=== PATIENT | male | born 1975 | race Two or more races ===

== ENCOUNTER 2019-05-31 22:09 | Inpatient (IN) | payer MEDICAID, OTHER ==
[~2019-05-31] VITALS: Ht 167.6 cm; Wt 77.3 kg
--- NOTE | 2019-05-31 22:24 | NUR ---
THIS IS A 44 YO MALE BIB EMS FROM [place] FOR SOB AND COUGH X2 DAYS, FEVERS AT HOME AND TEMP OF 99.6 AT SENDING FACILITY. PER PAPERWORK FROM [facility], PATIENT WAS DIAGNOSED WITH BILATERAL PNEUMONIA AND GIVEN ROCEPHIN AND AZITHROMYCIN, WELL IBUPROFEN AND TYLENOL AND IVF. LUNG SOUNDS REVEAL CRACKLES IN BILATERAL BASES. PATIENT SPEAKING IN FULL SENTENCES, RESPIRATIONS EVEN AND UNLABORED. 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 PIV PLACED BY SENDING FACILITY.
--- NOTE | 2019-05-31 23:12 | NUR ---
PATIENT RESTING ON GURNEY, VSS, RESPIRATIONS EVEN AND UNLABORED. CALL LIGHT IN REACH
[2019-06-01 00:01] LABS: BASOPHILS # (AUTO) 0.02 x10^3/uL (0-0.1); BASOPHILS % (AUTO) 0 % (0-1); EOSINOPHILS % (AUTO) 0 % (1-7); LYMPHOCYTES # (AUTO) 1.05 x10^3/uL (1-3.4); LYMPHOCYTES % (AUTO) 18 % (22-44); MD NO; MEAN CORPUSCULAR HEMOGLOBIN 29.8 pg (27.5-34.5); MEAN CORPUSCULAR HGB CONC 33.6 g/dL (33.2-36.2); MEAN CORPUSCULAR VOLUME 88.6 fL (81-97); MEAN PLATELET VOLUME 8.3 fL (7.4-10.4); MONOCYTES % (AUTO) 8 % (2-9); NEUTROPHILS # (AUTO) 4.41 x10^3/uL (1.8-6.8); NEUTROPHILS % (AUTO) 74 % (42-75); PLATELET COUNT 200 x10^3/uL (130-400); RED BLOOD COUNT 4.96 x10^6/uL (4.38-5.82); RED CELL DISTRIBUTION WIDTH 13.4 % (9.4-14.8)
--- NOTE | 2019-06-01 00:08 | NUR ---
XRAY IN ROOM
[2019-06-01 00:11] LABS: ALANINE AMINOTRANSFERASE 138 U/L (12-78); ALBUMIN 3.1 g/dL (3.4-5.0); ANION GAP 5 mmol/L (5-15); CALCIUM 8.2 mg/dL (8.5-10.1); CHLORIDE 108 mmol/L (98-107); CREATININE 0.85 mg/dL (0.7-1.3)
[2019-06-01 00:15] LABS: ALKALINE PHOSPHATASE 67 U/L (45-117); BILIRUBIN,TOTAL 0.4 mg/dL (0.2-1.0)
--- NOTE | 2019-06-01 00:20 | NUR ---
REPROT GIVEN TO JV CHO. PLAN OF CARE DISCUSSED
[2019-06-01] MEDS ORDERED: ONDANSETRON 2MG/ML, 2ML IVPush PRN (00:30)
[2019-06-01] MEDS: ENOXAPARIN 40 MG/0.4 ML SQ SCH ×2 (00:30→20:12)
[2019-06-01] MEDS ORDERED: TRAZODONE 50MG TABLET PO PRN (00:30)
[2019-06-01 01:00] VITALS: BP 111/78
[2019-06-01] MEDS: ACETAMINOPHEN 325 MG TABLET PO PRN ×3 (01:10→20:12)
[2019-06-01 01:15] VITALS: BP 111/78
[2019-06-01 07:19] VITALS: BP 110/74
[2019-06-01] MEDS ORDERED: AZITHROMYCIN 500 MG in SODIUM CHLORIDE 0.9% 250 ML IV SCH (09:00)
[2019-06-01 13:03] VITALS: BP 126/80
[2019-06-01] MEDS: HYDROXYCHLOROQUINE 200 MG TABLET PO SCH ×2 (16:50→21:17)
[2019-06-01 20:12] VITALS: BP 111/72
[2019-06-01] MEDS: GUAIFENESIN/COD200MG-20MG/10ML LIQUID PO PRN (20:12)
[2019-06-01] MEDS: CEFTRIAXONE PMX 1GM/50ML 50 ML IV SCH (20:12)
[2019-06-02 01:00] VITALS: BP 122/82
[2019-06-02] MEDS: ACETAMINOPHEN 325 MG TABLET PO PRN ×4 (01:00→16:52)
[2019-06-02] MEDS: GUAIFENESIN/COD200MG-20MG/10ML LIQUID PO PRN ×2 (03:33→10:10)
[2019-06-02 04:04] VITALS: BP 114/79
[2019-06-02] MEDS: HYDROXYCHLOROQUINE 200 MG TABLET PO SCH ×3 (09:00→20:48)
[2019-06-02 09:50] VITALS: BP 117/68
[2019-06-02 14:00] VITALS: BP 130/77
[2019-06-02] MEDS: CEFTRIAXONE PMX 1GM/50ML 50 ML IV SCH (19:25)
[2019-06-02] MEDS: ENOXAPARIN 40 MG/0.4 ML SQ SCH (19:25)
[2019-06-02 19:37] VITALS: BP 112/71
[2019-06-02] MEDS: AZITHROMYCIN 500 MG TABLET PO SCH (20:48)
[2019-06-03 01:43] VITALS: BP 133/77
[2019-06-03] MEDS: HYDROXYCHLOROQUINE 200 MG TABLET PO SCH ×3 (08:28→20:07)
[2019-06-03 08:35] VITALS: BP 115/74
[2019-06-03 14:00] VITALS: BP 116/75
[2019-06-03] MEDS ORDERED: ALBUTEROL INH SCH (15:00)
[2019-06-03] MEDS: ALBUTEROL INH SCH ×2 (16:01→22:00)
[2019-06-03] MEDS: ACETAMINOPHEN 325 MG TABLET PO PRN ×2 (16:07→22:05)
[2019-06-03] MEDS: GUAIFENESIN/COD200MG-20MG/10ML LIQUID PO PRN ×2 (16:07→22:05)
[2019-06-03] MEDS: ENOXAPARIN 40 MG/0.4 ML SQ SCH (20:07)
[2019-06-03] MEDS: AZITHROMYCIN 500 MG TABLET PO SCH (20:07)
[2019-06-03] MEDS: CEFTRIAXONE PMX 1GM/50ML 50 ML IV SCH (20:07)
[2019-06-03 20:30] VITALS: BP 114/77
[2019-06-04 03:45] VITALS: BP 105/72
[2019-06-04] MEDS: ACETAMINOPHEN 325 MG TABLET PO PRN ×2 (03:49→11:49)
[2019-06-04] MEDS: ALBUTEROL INH SCH ×2 (03:50→07:46)
[2019-06-04] MEDS: GUAIFENESIN/COD200MG-20MG/10ML LIQUID PO PRN ×2 (03:50→11:49)
[2019-06-04 06:50] LABS: ALANINE AMINOTRANSFERASE 204 U/L (12-78); ALBUMIN 2.7 g/dL (3.4-5.0); ANION GAP 4 mmol/L (5-15); CALCIUM 8.5 mg/dL (8.5-10.1); CHLORIDE 109 mmol/L (98-107); CREATININE 0.83 mg/dL (0.7-1.3)
[2019-06-04 06:52] LABS: ALKALINE PHOSPHATASE 81 U/L (45-117); BILIRUBIN,TOTAL 0.2 mg/dL (0.2-1.0)
[2019-06-04 06:59] LABS: BASOPHILS # (AUTO) 0.02 x10^3/uL (0-0.1); BASOPHILS % (AUTO) 0 % (0-1); EOSINOPHILS # (AUTO) 0.07 x10^3/uL (0-0.4); EOSINOPHILS % (AUTO) 1 % (1-7); LYMPHOCYTES # (AUTO) 1.02 x10^3/uL (1-3.4); LYMPHOCYTES % (AUTO) 18 % (22-44); MD NO; MEAN CORPUSCULAR HEMOGLOBIN 29.9 pg (27.5-34.5); MEAN CORPUSCULAR HGB CONC 33.9 g/dL (33.2-36.2); MEAN CORPUSCULAR VOLUME 88.1 fL (81-97); MONOCYTES # (AUTO) 0.67 x10^3/uL (0.2-0.8); MONOCYTES % (AUTO) 12 % (2-9); NEUTROPHILS # (AUTO) 3.96 x10^3/uL (1.8-6.8); NEUTROPHILS % (AUTO) 69 % (42-75); PLATELET COUNT 275 x10^3/uL (130-400); RED BLOOD COUNT 4.75 x10^6/uL (4.38-5.82); RED CELL DISTRIBUTION WIDTH 13.1 % (9.4-14.8)
[2019-06-04 07:45] VITALS: BP 113/74
[2019-06-04] MEDS: HYDROXYCHLOROQUINE 200 MG TABLET PO SCH (07:46)
[2019-06-04] MEDS ORDERED: AMOX1TAB64 PO (11:45)
[2019-06-04] MEDS ORDERED: HYDR200T5 PO (11:45)
[2019-06-04] MEDS ORDERED: AZIT500T10 PO (11:45)
[2019-06-04] MEDS ORDERED: BENZ100C PO (11:45)
[2019-06-04] MEDS ORDERED: ALBU18HF INH (11:46)
[2019-06-04 12:00] VITALS: BP 117/77
== END 2019-06-04 13:34 | disposition home or self-care (01) | DRG 956 ==
LOC: SUATTDRO 23:35 → ED 23:39 → INTOOBSV 23:48 → EDIP 23:48 → 3WST 06-01 00:48 → OBSVTOIN 06-02 09:23
PROVIDERS: ADMIT Hospitalist; ATTEND Hospitalist
DX: U07.1 COVID-19 (principal); J12.89 Other viral pneumonia; J96.01 Acute respiratory failure with hypoxia; E87.2 Acidosis; D72.810 Lymphocytopenia
CPT/HCPCS: 36415; 71045; 76705; 80053; 80074; 83880; 85025; 93005; G0378; J0456; J0696; J1650; J7050